=== PATIENT | male | born 1980 | race Caucasian/White ===

== ENCOUNTER 2022-01-30 08:01 | Outpatient (CLI) | payer BC, SELFPAY ==
[2022-01-30 09:23] LABS: Creatinine Urine 131.4 mg/dL
[2022-01-30 09:24] LABS: Anion Gap 5 mmol/L (8-16); Blood Urea Nitrogen 14 mg/dL (9-20); Carbon Dioxide 25 mmol/L (22-30); Chloride 109 mmol/L (98-107); Cholesterol 153 mg/dL (0-200); Estimated Glomerular Filt Rate > 60; Glucose 186 mg/dL (65-110); Sodium 139 mmol/L (137-145)
[2022-01-30 09:27] LABS: MALB Creatinine Ratio 40.7 mg/g (0-30); Microalbumin Urine Random 53.5 mg/L (0-16.7)
[2022-01-30 09:36] LABS: Prostate Specific Antigen 0.5 ng/mL (< OR = 4.0); Thyroid Stimulating Hormone 0.706 uIU/mL (0.465-4.680)
[2022-01-30 10:07] LABS: LDL Cholesterol Direct < 30 mg/dL; Triglycerides 1377 mg/dL (<150)
== END 2022-01-30 08:02 | disposition home or self-care (01) ==
LOC: ANHLAB 08:03
PROVIDERS: PCP Family Medicine; Visit Provider Nurse Practitioner Family
DX: E11.9 Type 2 diabetes mellitus without complications (principal); Z13.29 Encounter for screening for other suspected endocrine disorder
CPT/HCPCS: 36415; 80048; 80061; 82043; 84153; 84443; G0103

== ENCOUNTER 2023-08-13 08:16 | Outpatient (CLI) | payer BC, SELFPAY ==
--- NOTE | ~2023-08-13 | XR_ITS ---
Clinical Indication: Chest pain PA and lateral views of the chest: Comparison: None Findings: The lungs are clear, without evidence of focal consolidation or pleural effusion. Cardiome diastinal silhouette is within normal limits. Bones and soft tissues are unremarkable. Impression: Normal chest. Reviewed, dictated and finalized at location . MAKER Impression: Normal chest.
--- NOTE | 2023-08-13 08:44 | ECG_ITS ---
Measurements Intervals [place] Rate: 88 P: 48 MT: 167 QRS: 1 QRSD: 86 T: 18 QT: 332 QTc: 403 Interpretive Statements SINUS RHYTHM NORMAL ECG NO PREVIOUS ECG AVAILABLE FOR COMPARISON Electronically Signed On 08-13-2023 8:59:35 SEWING MACHINE ATTACHMENT TESTER by Tanner Michel D.O.
[2023-08-13 08:46] LABS: Hematocrit 46.7 % (42.0-52.0); Hemoglobin 15.8 g/dL (14.0-18.0); Mean Corpuscular HGB Conc 33.8 g/dl (32-36); Mean Corpuscular Hemoglobin 28.3 pg (26-34); Mean Corpuscular Volume 83.7 fl (80-100); Mean Platelet Volume 11.6 fl (7.4-10.4); Platelet Count Result 202 k/mm3 (150-375); Red Blood Count 5.58 M/mm3 (4.6-6.20); Red Cell Distribution Width 14.2 % (11.5-14.5); White Blood Count 15.8 K/mm3 (4.5-10.0)
[2023-08-13 08:56] LABS: Alanine Aminotransferase 39 U/L (6-50); Albumin Level 4.2 g/dL (3.5-5.1); Alkaline Phosphatase 55 U/L (38-126); Anion Gap 7 mmol/L (8-16); Aspartate Amino Transferase 26 U/L (17-59); Bilirubin,Total 0.7 mg/dL (0.2-1.3); Blood Urea Nitrogen 14 mg/dL (9-20); Calcium 9.2 mg/dL (8.4-10.2); Carbon Dioxide 23 mmol/L (22-30); Chloride 106 mmol/L (98-107); Cholesterol 185 mg/dL (0-200); Estimated Glomerular Filt Rate > 60; Glucose 261 mg/dL (65-110); Potassium 4.2 mmol/L (3.4-5.0); Sodium 136 mmol/L (137-145)
[2023-08-13 09:13] LABS: LDL Cholesterol Direct < 30 mg/dL
[2023-08-13 09:20] LABS: Triglycerides 1692 mg/dL (<150)
[2023-08-13 09:24] LABS: Prostate Specific Antigen 0.7 ng/mL (< OR = 4.0); Thyroid Stimulating Hormone 0.586 uIU/mL (0.465-4.680)
[2023-08-13 10:19] LABS: Creatinine Urine 90.6 mg/dL
[2023-08-13 10:26] LABS: MALB Creatinine Ratio 87.4 mg/g (0-30); Microalbumin Urine Random 79.2 mg/L (0-16.7)
== END 2023-08-13 08:17 | disposition home or self-care (01) ==
PROVIDERS: PCP Family Medicine; Visit Provider Nurse Practitioner Family
DX: Z12.5 Encounter for screening for malignant neoplasm of prostate (principal); E78.5 Hyperlipidemia, unspecified; I10 Essential (primary) hypertension; E11.9 Type 2 diabetes mellitus without complications; Z13.29 Encounter for screening for other suspected endocrine disorder; R07.9 Chest pain, unspecified
CPT/HCPCS: 36415; 71046; 80053; 80061; 82043; 84153; 84443; 85027; 93005

== ENCOUNTER 2023-09-05 09:32 | Outpatient (CLI) | payer BC, SELFPAY ==
--- NOTE | 2023-09-05 10:04 | EST_ITS ---
Patient Info Name: Amanuel Powell Age: 43 years : 1980 Gender: Male Ht: 75 in Wt: 290 lbs BSA: 2.68 m2 HR: 93 bpm BP: 144 / 83 mmHg Heart Rhythm: Sinus Rhythm Exam Date: 09/05/2023 10:18 AM Exam Location: Echo Lab Patient Status: Outpatient Admit Date: 09/05/2023 Staff Ordering Physician: Deborah Plummer Attending Provider: Deborah Plummer Exercise Technologist: Nehal Del Rosario CT Exercise Physician: Tanner Michel DO Exam Type: CA stress test treadmill Study Info Indications R07.89 - Other chest pain A treadmill exercise stress test was performed. Summary 1. 1. Negative Lino exercise stress test for ischemic ST changes by ECG criteria. 2. 2. Reduced functional capacity, achieving 7 METs of workload. 3. 3. Appropriate HR response to exercise. 4. 4. Appropriate HR recovery at 1 minute post exercise. 5. 5. No imaging with stress testing. 6. 6. Patient informed of the above results. Protocol: Lino Stress ECG Details Stage: REST Duration (min): 4 min : 22 sec Speed (mph): 0.0 Grade (%): 0 HR (bpm): 95 SBP (mmHg): 144 DBP (mmHg): 83 METS: --- Stage: REST Duration (min): 4 min : 43 sec Speed (mph): 0.0 Grade (%): 0 HR (bpm): 102 SBP (mmHg): 144 DBP (mmHg): 83 METS: --- Stage: STAGE 1 Duration (min): 1 min : 0 sec Speed (mph): 1.7 Grade (%): 10 HR (bpm): 133 SBP (mmHg): 144 DBP (mmHg): 83 METS: --- Stage: STAGE 1 Duration (min): 2 min : 0 sec Speed (mph): 1.7 Grade (%): 10 HR (bpm): 147 SBP (mmHg): 144 DBP (mmHg): 83 METS: --- Stage: STAGE 1 Duration (min): 3 min : 0 sec Speed (mph): 1.7 Grade (%): 10 HR (bpm): 156 SBP (mmHg): 197 DBP (mmHg): 85 METS: --- Stage: STAGE 2 Duration (min): 1 min : 0 sec Speed (mph): 2.5 Grade (%): 12 HR (bpm): 164 SBP (mmHg): 197 DBP (mmHg): 85 METS: --- Stage: STAGE 2 Duration (min): 1 min : 30 sec Speed (mph): 2.5 Grade (%): 12 HR (bpm): 166 SBP (mmHg): 197 DBP (mmHg): 85 METS: --- Stage: RECOVERY Duration (min): 0 min : 29 sec Speed (mph): 0.0 Grade (%): 0 HR (bpm): 163 SBP (mmHg): 193 DBP (mmHg): 87 METS: --- Stage: RECOVERY Duration (min): 1 min : 29 sec Speed (mph): 0.0 Grade (%): 0 HR (bpm): 137 SBP (mmHg): 193 DBP (mmHg): 87 METS: --- Stage: RECOVERY Duration (min): 2 min : 29 sec Speed (mph): 0.0 Grade (%): 0 HR (bpm): 112 SBP (mmHg): 193 DBP (mmHg): 87 METS: --- Stage: RECOVERY Duration (min): 3 min : 29 sec Speed (mph): 0.0 Grade (%): 0 HR (bpm): 117 SBP (mmHg): 182 DBP (mmHg): 86 METS: --- Stage: RECOVERY Duration (min): 3 min : 40 sec Speed (mph): 0.0 Grade (%): 0 HR (bpm): 108 SBP (mmHg): 182 DBP (mmHg): 86 METS: --- Rest HR: 102 bpm Peak HR: 167 bpm Rest Sys BP: 144 mmHg Peak Sys BP: 197 mmHg Max Pred HR: 177 bpm % Max Pred HR: 94 % Target HR: 150 bpm Max RPP:
== END 2023-09-05 09:33 | disposition home or self-care (01) ==
LOC: ANHCARD 09:33
PROVIDERS: PCP Family Medicine; Visit Provider Nurse Practitioner Family
DX: R07.9 Chest pain, unspecified (principal)
CPT/HCPCS: 93017

== ENCOUNTER 2024-05-10 07:10 | Outpatient (CLI) | payer OTHER, SELFPAY ==
[2024-05-10 11:18] LABS: Hemoglobin A1C 8.5 % (<5.7)
== END 2024-05-10 07:11 | disposition home or self-care (01) ==
PROVIDERS: PCP Family Medicine
DX: E11.9 Type 2 diabetes mellitus without complications (principal)
CPT/HCPCS: 36415; 83036

== ENCOUNTER 2024-11-15 07:02 | Outpatient (CLI) | payer OTHER, SELFPAY ==
--- OUTSIDE RECORDS SUMMARY | 2024-11-15 07:05 | XMS_ITS | Clinical Summary ---
Author Organization [facility] Address [address] [place] [address] Phone Care Team Providers Care Peanut Sheller Name Role Phone Jose Oswald MD Primary Care Provider [phone] Medications lisinopriL (PRINIVIL) 40 mg tablet Take 40 mg by mouth daily. Active metFORMIN (GLUCOPHAGE) 1,000 mg tablet Take 1,000 mg by mouth 2 times daily with meals. Active amLODIPine (NORVASC) 5 mg tablet Take 5 mg by mouth daily. Active atorvastatin (LIPITOR) 80 mg tablet Take 80 mg by mouth daily. Active icosapent ethyL (Vascepa) 0.5 gram Capsule Take by mouth 2 times daily with meals. Active multivitamin (DAILY-EMELI) tablet Take 1 Tablet by mouth daily. Active Active Problems Problem Noted Date Diagnosed Date Acute pancreatitis 04/23/2024 Leukocytosis (leucocytosis) 04/23/2024 Type 2 diabetes mellitus wit hout complication, without long-term current use of insulin 04/23/2024 Essential hypertension 04/23/2024 Tobacco dependence 04/23/2024 SIRS (systemic inflammatory response syndrome) 0 04/23/2024 Family History Medical History Relation Name Comments HIV Father Diabetes Mother Hypertension Mother Relation Name Status Comments Brother 1 Alive Brother 2 Alive Father Mother Alive Social History Tobacco Use Types Packs/Day Years Used Date Smoking Tobacco: Every Day Cigarettes 2 30 Tobacco Cessation:Ready to Q uit: Not Asked; Counseling Given: Not Answered Alcohol Use Standard Drinks/Week Comments Yes 1 (1 standard drink = 0.6 oz pur e alcohol) Feeling Safe Answer Date Recorded Are you in a relationship wi th someone who hurts you emotionally and/or physically? No 04/23/2024 Food Insecurity Answer Date Recorded Social/Environmental Concerns No concerns Transportation Needs Answer Date Record ed Social/Environmental Concerns No concerns Housing Stability Answer Date Recorded Social/Environmental Concerns No concerns Utility Needs Answer Date Recorded Social/Environmental Concerns No concerns Sex and Gender Information Value Date Recorded Sex Assigned at Not on file Legal Sex Male 10:13 AM CDT Gender Identity Not on file Sexual Orientation Not on file Last Filed Vital Signs Vital Sign Reading Time Taken Comments Blood Pressure 149/90 04/24/2024 3:40 PM CDT Pulse 124 04/24/2024 4:00 PM CDT Temperature 37.1 C (98.7 F) 04/24/2024 3:40 PM CDT Respiratory Rate 32 04/24/2024 4:00 PM CDT Oxygen Saturation 96% 04/24/2024 4:00 PM CDT Inhaled Oxygen Concentration - - Weight 117.5 kg (259 lb 1.6 oz) 024 12:34 AM CDT Height 190.5 cm (6' 3 ) 04/23/2024 12:3 4 AM CDT Body Mass Index 32.39 04/23/2024 12:34 AM CDT Plan of Treatment Health Maintenance Due Date Last Done Comments PNEUMOCOCCAL VACCINE 0-64 YE ARS (1 of 2 - PCV) 01/15/1986 DIABETES ANNUAL FOOT EXAM 01/15/1998 DIABETES ANNUAL RETINAL EXAM 01/15/1998 DIABETES HBA1C Q 6 MONTHS 01/15/1998 DIABETES MICROALBUMIN ANNUAL SCREEN 01/15/1998 DTAP/TDAP/TD VACCINES (1 - Tdap) 01/15/1999 HEPATITIS B VACCINES (1 of 3 - 19+ 3-dose series) 01/15/1999 INFLUENZA VACCINE (#1) 2024 LDL CHOLESTEROL ANNUAL 04/23/2025 04/23/2024 HPV VACCINES Aged Out No longer eligi ble based on patient's age to complete this topic Procedures Procedure Name Priority Date/Time Associated Diagnosis Comments LIPID PANEL Routine 04/23/2024 3:42 AM CDT from Last 3 Months or Most Recently Relevant to Health Maintenance Results * (ABNORMAL) LIPID PANEL (04/23/2024 3:42 AM CDT) CHOLESTEROL 259(H) <200 mg/dL 04/23/2024 4:47 AM [facility] TRIGLYCERIDE 751(H) <150 mg/dL 04/23/2024 4:47 AM [facility] HDL 23(L) 40 - 59 mg/dL 04/23/2024 4:47 AM [facility] LDL CALCULATED 04/23/2024 4:47 AM [facility] Comment:Calculated LDL is no t accurate when the Triglyceride value exceeds 400. NON-HDL CHOLESTEROL 236(H) <130 mg/dL 04/23/2024 4:47 AM [facility] Blood Venipuncture / Unknown 04/23/2024 3:42 AM CDT 04/23/2024 3:50 AM CDT [facility] - 04/23/2024 4:47 AM CDT TOTAL CHOLESTEROL mg/dL Desirable <200 Borderline high 200-239 High >=240 TRIGLYCERIDES mg/dL Normal <150 Borderline high 150-199 High 200-499 Very high >=500 HDL CHOLESTEROL mg/dL Low <40 Normal 40-59 Desirable >=60 NON HDL CHOLESTEROL mg/dL Optimal <130 Near Optimal 130-159 Borderline High 160-189 Very High >=190 CALCULATED LDL mg/dL LDL <70, OPTIMAL if have Atherosclerotic cardiovascular disease (ASCVD) or intermediate or higher (>7.5%) 10 year risk of ASCVD including most adults with diabetes. LDL <100, Optimal in adult patients with low (<7.5%) 10 year ASCVD risk LDL 100-160, Suboptimal LDL >160, High LDL >190, Very high ATPIII Guidelines Reference Ranges for Lipid Panels (NCEP/AMA) . us Virgil Keenan MD CHEMISTRY ORDERABLES Final Resu lt [facility] [id number] [address] [place] [address] from Last 3 Months or Most Recently Relevant to Health Maintenance Insurance [employer] [id number] Advance Directives For more information, please contact: [phone] * Full Code (Latest Code Status on File) Date Activated Date Inactivated Comments 04/23/2024 1:55 AM 04/24/2024 7:02 PM Care Teams Peanut Sheller Relationship Specialty Start Date End Date Jose Oswald MD [address] [place] [address] PCP - General Family Practice 04/24/24
--- OUTSIDE RECORDS SUMMARY | 2024-11-15 07:05 | XMS_ITS | CONTINUITY OF CARE DOCUMENT ---
Author Name [facility] Address Unknown Organization [facility] Address [address] [place] [address] Phone [phone] Care Team Providers Care Handwriting Expert Name Role Phone Antonio DRAKE, Richy Unavailable [phone] Richy Alvarez MD Unavailable [phone] INSURANCE PROVIDERS Payer name Policy type / Coverage type [place] red green party ID [facility] [id number] Other [id number]
[2024-11-15 08:48] LABS: Amylase 68 U/L (30-110); Lipase 135 U/L (23-300)
[2024-11-15 09:20] LABS: Creatinine Urine 96.2 mg/dL
[2024-11-15 09:24] LABS: MALB Creatinine Ratio 14.9 mg/g (0-30); Microalbumin Urine Random 14.3 mg/L (0-16.7)
== END 2024-11-15 07:03 | disposition home or self-care (01) ==
LOC: ANHLAB 07:03
PROVIDERS: PCP Family Medicine
DX: E11.9 Type 2 diabetes mellitus without complications (principal); Z87.19 Personal history of other diseases of the digestive system
CPT/HCPCS: 36415; 82043; 82150; 83690

== ENCOUNTER 2025-03-01 07:32 | Outpatient (CLI) | payer OTHER, SELFPAY ==
--- OUTSIDE RECORDS SUMMARY | 2025-03-01 07:35 | XMS_ITS | Clinical Summary ---
Author Organization [facility] Address [address] [place] [address] Phone Care Team Providers Care Computer Repair Technician Name Role Phone Jose Oswald MD Primary Care Provider [phone] Medications lisinopriL (PRINIVIL) 40 mg tablet Take [...] No 04/23/2024 Food Insecurity Answer Date Recorded Patient needs follow up regardin 02/13/2025 Transportation Needs Answer Date Record ed Patient needs follow up regardin 02/13/2025 Housing Stability Answer Date Recorded Social/Environmental Concerns No concerns Utility Needs Answer Date Recorded Patient needs follow up regardin 02/13/2025 Sex and Gender Information Value Date Recorded [...] Health Maintenance Due Date Last Done Comments DIABETES ANNUAL FOOT EXAM 01/15/1998 DIABETES ANNUAL RETINAL EXAM 01/15/1998 DIABETES HBA1C Q 6 MONTHS 01/15/1998 DIABETES MICROALBUMIN ANNUAL SCREEN 01/15/1998 DTAP/TDAP/TD VACCINES (1 - Tdap) 01/15/1999 HEPATITIS B VACCINES (1 of 3 - 19+ 3-dose series) 01/15/1999 INFLUENZA VACCINE (#1) 2024 COLORECTAL SCREENING 01/15/2025 Colorectal Cancer Screening 01/15/2025 FIT-DNA Q 3 years 01/15/2025 FIT/FOBT Q 1 year 01/15/2025 Flex Sig/CT Colonography Q 5 years 01/15/2025 LDL CHOLESTEROL ANNUAL 04/23/2025 04/23/2024 HPV VACCINES Aged Out No longer eligi ble based on patient's age to complete this topic Procedures Procedure Name Priority Date/Time Associated Diagnosis Comments LIPID PANEL Routine 04/23/2024 3:42 AM CDT from Last 3 Months or Most Recently Relevant to Health Maintenance Results * (ABNORMAL) LIPID PANEL (04/23/2024 3:42 AM CDT) CHOLESTEROL 259(H) <200 mg/dL 04/23/2024 4:47 AM CDT [facility] TRIGLYCERIDE 751(H) <150 mg/dL 04/23/2024 4:47 AM T [facility] HDL 23(L) 40 - 59 mg/dL 04/23/2024 4:47 AM T [facility] LDL CALCULATED 04/23/2024 4:47 AM T [facility] Comment:Calculated LDL is no t accurate when the Triglyceride value exceeds 400. NON-HDL CHOLESTEROL 236(H) <130 mg/dL 04/23/2024 4:47 AM [facility] Blood Venipuncture / Unknown 04/23/2024 3:42 AM CDT 04/23/2024 3:50 AM CDT Narrative [facility] - 04/23/2024 4:47 AM CDT TOTAL [...] for Lipid Panels (NCEP/AMA) . us Virgil eKenan MD CHEMISTRY ORDERABLES Final Resu lt [facility] [employer] [facility] CLIA# [id number] [address] [place] [address] from Last 3 Months or Most Recently Relevant to Health Maintenance Insurance [employer] [facility] [employer] Physical [id number] Advance Directives For more information, please contact: [phone] * Full Code (Latest Code Status on File) Date Activated Date Inactivated Comments 04/23/2024 1:55 AM 04/24/2024 7:02 PM Care Teams Computer Repair Technician Relationship Specialty Start Date End Date Jose Oswlad MD [address] [place] [address] PCP - General Family Practice 04/24/24
--- OUTSIDE RECORDS SUMMARY | 2025-03-01 07:35 | XMS_ITS | CONTINUITY OF CARE DOCUMENT ---
Author Name alyx wisdom Address Unknown Organization [facility] Address [address] [place] [address] Phone [phone] Care Team Providers Care Crisis Specialist Name Role Phone Antonio DRAKE, Richy Unavailable [phone] Richy Alvarez MD Unavailable [phone] INSURANCE PROVIDERS Payer name Policy type / Coverage type [place] red [employer] party ID [facility] [id number] Other [id number]
[2025-03-01 08:15] LABS: Basophils Absolute Auto 0.1 K/mm3 (0.0-0.1); Basophils Percent Auto 0.5 % (0.2-1.2); Eosinophils Absolute Auto 0.2 K/mm3 (0-0.3); Eosinophils Percent Auto 1.2 % (0-4.4); Hematocrit 51.5 % (42.0-52.0); Hemoglobin 16.6 g/dL (14.0-18.0); Immature Granulocyte Percent A 0.6 % (0-0.5); Lymphocytes Absolute Auto 2.93 K/mm3 (0.9-3.2); Lymphocytes Percent Auto 17.9 % (18.3-44.2); Mean Corpuscular HGB Conc 32.2 g/dl (32-36); Mean Corpuscular Hemoglobin 27.1 pg (26-34); Mean Corpuscular Volume 84.2 fl (80-100); Monocytes Absolute Auto 0.8 K/mm3 (0.1-0.6); Monocytes Percent Auto 4.9 % (2.6-8.5); Neutrophils Absolute Auto 12.3 K/mm3 (1.3-6.7); Neutrophils Percent Auto 74.9 % (45.5-73.1); Platelet Count Result 138 k/mm3 (150-375); Red Blood Count 6.12 M/mm3 (4.6-6.20); Red Cell Distribution Width 16.8 % (11.5-14.5); White Blood Count 16.4 K/mm3 (4.5-10.0)
[2025-03-01 09:05] LABS: Alanine Aminotransferase 27 U/L (6-50); Albumin Level 4.7 g/dL (3.5-5.1); Alkaline Phosphatase 58 U/L (38-126); Anion Gap 11 mmol/L (4-12); Aspartate Amino Transferase 31 U/L (17-59); Bilirubin,Total 0.7 mg/dL (0.2-1.3); Blood Urea Nitrogen 15 mg/dL (9-20); Calcium 9.9 mg/dL (8.4-10.2); Carbon Dioxide 24 mmol/L (22-30); Chloride 105 mmol/L (98-107); Cholesterol 128 mg/dL (0-200); Estimated Glomerular Filt Rate > 60; Glucose 201 mg/dL (65-110); HDL Direct 21 mg/dL; Potassium 4.2 mmol/L (3.4-5.0); Sodium 140 mmol/L (137-145); Triglycerides 413 mg/dL (<150)
[2025-03-01 09:15] LABS: LDL Cholesterol Direct 40 mg/dL
[2025-03-01 09:35] LABS: Hemoglobin A1C 8.2 % (<5.7)
[2025-03-01 09:38] LABS: Prostate Specific Antigen 0.7 ng/mL (< OR = 4.0); Thyroid Stimulating Hormone 0.904 uIU/mL (0.465-4.680)
== END 2025-03-01 07:33 | disposition home or self-care (01) ==
LOC: ANHLAB 07:33
PROVIDERS: PCP Family Medicine
DX: I10 Essential (primary) hypertension (principal); E11.9 Type 2 diabetes mellitus without complications; Z13.1 Encounter for screening for diabetes mellitus; Z13.220 Encounter for screening for lipoid disorders; Z13.29 Encounter for screening for other suspected endocrine disorder; Z13.0 Encounter for screening for diseases of the blood and blood-forming organs and certain disorders involving the immune mechanism; Z12.5 Encounter for screening for malignant neoplasm of prostate; Z87.19 Personal history of other diseases of the digestive system
CPT/HCPCS: 36415; 80053; 80061; 83036; 84153; 84443; 85025; 85055; 86900; 86901; G0103

== ENCOUNTER 2025-08-20 07:30 | Outpatient (CLI) | payer BC, SELFPAY ==
[2025-08-20 08:46] LABS: Hematocrit 45.6 % (42.0-52.0); Hemoglobin 14.8 g/dL (14.0-18.0); Immature Granulocyte Percent A 0.5 % (0-0.5); Lymphocytes Absolute Auto 3.68 K/mm3 (0.9-3.2); Mean Corpuscular HGB Conc 32.5 g/dl (32-36); Mean Corpuscular Hemoglobin 28.0 pg (26-34); Mean Corpuscular Volume 86.4 fl (80-100); Nucleated Red Blood Cells Absolute Auto 0.000 K/mm3 (0.0-0.012); Nucleated Red Blood Cells Perc 0.0 % (0.0-0.2); Platelet Count Result 166 k/mm3 (150-375); Red Blood Count 5.28 M/mm3 (4.6-6.20); White Blood Count 12.9 K/mm3 (4.5-10.0)
[2025-08-20 09:11] LABS: Hemoglobin A1C 6.6 % (<5.7)
[2025-08-20 09:23] LABS: Cholesterol 123 mg/dL (0-200); HDL Direct 22 mg/dL; Triglycerides 112 mg/dL (<150)
== END 2025-08-20 07:31 | disposition home or self-care (01) ==
LOC: ANHLAB 07:32
PROVIDERS: PCP Family Medicine
DX: E78.2 Mixed hyperlipidemia (principal); I10 Essential (primary) hypertension; E11.9 Type 2 diabetes mellitus without complications
CPT/HCPCS: 36415; 80061; 83036; 85025